=== PATIENT | female | born 1935 | race Caucasian/White ===

== ENCOUNTER 2017-12-17 19:30 | Inpatient (IN) ==
[2017-12-17 20:19] LABS: Basophils % 0.1 % (0.1-2.0); Eosinophils # 0.2 K/mm3 (0.0-0.4); Eosinophils % 1.6 % (0.1-12.0); Hematocrit 33.5 % (37.0-47.0); Lymphocytes % 10.8 K/mm3 (10-50); Mean Corpuscular HGB Conc 32.7 g/dL (31.8-35.4); Mean Corpuscular Hemoglobin 29.4 pg (27.0-31.2); Mean Corpuscular Volume 89.8 fl (81-99); Monocytes # 0.6 K/mm3 (0.1-1.0); Monocytes % 5.9 % (1.7-9.3); Neutrophils # 7.6 K/mm3 (1.8-7.8); Neutrophils % 81.7 % (37.0-80.0); Platelet Count 247 K/mm3 (142-424); Red Blood Count 3.73 M/mm3 (4.20-5.40); Red Cell Distribution Width 13.1 % (11.5-17.5); White Blood Count 9.3 K/mm3 (4.8-10.8)
[2017-12-17 20:26] LABS: Anion Gap 11.1 mEq/L (5-15); Potassium 4.1 mmoL/L (3.5-5.1)
--- NOTE | 2017-12-17 21:54 | Emergency Department Note ---
ED Disposition Clinical Impression: Renal insufficiency Hip fx Qualifiers: Encounter type: initial encounter Fracture type: closed Laterality: left Qualified Code(s): S72.002A - Fracture of unspecified part of neck of left femur , initial encounter for closed fracture Disposition: Admitted As Inpatient Condition on Discharge: Good Referrals: Myriam Loco MD [Primary Care Provider] - - Critical Care Critical Care Time: No Attestation: On 12/17/17, the high probability of a clinically significant, sudden or life threatening deterioration of the following system(s) required my full and direct attention, intervention and personal management. The time I documented below is in addition to time spent performing reported procedures but includes the following listed in this critical care notation. Medical Decision Making - Medical Records Medical records reviewed: Yes: I reviewed the patient's medical records. - Ronnie Inquiry Pt receiving controlled substance: No Vital Signs: 12/17/17 19:33 Temperature 98.7 F Temperature Source Oral Pulse Rate [Right Radial] 84 Respiratory Rate 14 Blood Pressure [Right Arm] 144/77 Blood Pressure Mean [Right Arm] 99 Blood Pressure Source [Right Arm] Automatic Cuff Blood Pressure Position [Right Arm] Supine 02 Sat by Pulse Oximetry 97 Oxygen Delivery Method Room Air - Lab Data Lab results reviewed: Yes: I reviewed the patient's lab results. Lab Results 12/17/17 20:10: WBC 9.3, RBC 3.73 L, Hgb 11.0 L, Hct 33.5 L, MCV 89.8, MCH 29.4 , MCHC 32.7, RDW 13.1, Plt Count 247, MPV 7.0 L, Neut % (Auto) 81.7 H, Lymph % ( Auto) 10.8, [place] % (Auto) 5.9, Eos % (Auto) 1.6, Baso % (Auto) 0.1, Neut # (Auto ) 7.6, Lymph # (Auto) 1.0, [place] # (Auto) 0.6, Eos # (Auto) 0.2, Baso # (Auto) 0.0 12/17/17 20:10: Sodium 132 L, Potassium 4.1, Chloride 97 L, Carbon Dioxide 28, Anion Gap 11.1, BUN 28 H, Creatinine 1.19 H, Estimated Creat Clear 45, Estimated GFR 43 L, Est GFR ( Amer) 52 L, Glucose 156 H Result diagrams: 12/17/17 20:10 12/17/17 20:10 Orders (Tests/Meds): ED MEDICATIONS Discontinued Medications Generic Name Dose Route Start Last Admin Trade Name Marcia PRN Reason Stop Dose Admin Morphine Sulfate 2 mg 12/17/17 20:10 12/17/17 19:55 Morphine 2mg/2ml Syringe IV 12/17/17 20:11 2 mg ONCE ONE Administration Ondansetron HCl 4 mg 12/17/17 20:10 12/17/17 19:55 Zofran 4mg/2ml Vial IV 12/17/17 20:11 4 mg ONCE ONE Administration ORDERS Category Date Time Status XR chest AP Routine Exams 12/17/17 20:23 Taken XR hip LT 2-3V w/pelvis Stat Exams 12/17/17 19:50 Taken - Radiology Data #1 Image(s): Chest, Hip Image Reviewed: Yes I reviewed the patient's radiology image Preliminary Findings: Normal/NAD, Abnormal (lt hip fx ) - Physician Consults Physician Consulted: amelie Reason -: Admission Additional Consult: thomas Reason -: Pt condition Fall HPI - General Chief Complaint: Fall Stated Complaint: fall Time Seen by Provider: 12/17/17 21:48 Mode of Arrival: EMS Source of Information: Patient, Relative, Medical Record Limitations: No Limitations Description of Symptoms (Recalled from ER Triage Doc. by RN): left hip pain with external rotation and shortening after fall from standing - History of Present Illness HPI Narrative: fall at f tonight transferring from chair complaint: fall Onset (ago): hour(s) Fall from: chair Fall witnessed: no Place fall occurred: snf/SNF Loss of consciousness: none Prolonged down time: no Symptoms prior to fall: none Context: tripped/slipped Location of injury - extremities: Left: thigh Severity: moderate - Related Data Home Medications Medication Instructions Recorded Confirmed Cyclobenzaprine HCl 5 mg PO BID PRN 12/12/17 12/17/17 [Cyclobenzaprine 5mg Tab] Donepezil HCl [Aricept 5mg] 5 mg PO HS 12/17/17 12/17/17 Ibuprofen [Ibuprofen 600mg Tab] 600 mg PO TID 12/17/17 12/17/17 Lisinopril [Lisinopril 20mg Tab] 20 mg PO BID 12/17/17 12/17/17 Previous Rx's Medication Instructions Recorded Tramadol HCl [Ultram 50mg 50 mg PO BID #4 tab 12/12/17 tablet] Allergies Allergy/AdvReac Type Severity Reaction Status Date / Time naproxen Allergy Unknown UNKNOWN Verified 12/17/17 20:11 [facility] History I have reviewed the patient's past medical history: Yes Medical History: Denies:: Cancer, Diabetes Mellitus Type 1, Diabetes Mellitus Type 2, MRSA Laterality Cases: Bilateral: Arthroscopy Knee Amputation: No - Social History Alcohol Intake: never - Psychiatric History Expresses thoughts of harming self/others: None Suicide Plan Description: No Plan ROS Obtained: Yes All systems reviewed & no additional complaints - Constitutional Constitutional: Denies fever(s) - Eyes Eyes: Denies change in vision - ENT Ears, Nose, Mouth, and Throat: Denies sore throat - Cardiovascular Cardiovascular: Denies chest pain at rest - Respiratory Respiratory: No cough - Gastrointestinal Gastrointestingal: Denies: abdominal pain - Genitourinary Female Genitourinary: Denies flank pain - Musculoskeletal Musculoskeletal: Reports joint pain, Reports back pain - Integumentary/Breasts Skin/Breast: Denies rash - Neurologic Neurologic: Denies seizure-like activity Physical Exam - General General appearance: in no apparent distress - Head Head exam: normocephalic - Eye Eye exam: Present: PERRL, EOMI - ENT ENT exam: Present: mucous membranes dry - Neck Neck exam: Present: trachea midline - Respiratory Respiratory exam: Present: normal lung sounds bilaterally. Absent: respiratory distress - Cardiovascular Cardiovascular exam: Present: regular rate, systolic murmur, +S4 - Abdominal Exam Abdominal exam: Present: soft - Expanded Lower Extremity Exam Left Hip/Pelvis exam: Present: tenderness, pelvis stable, external rotation, shortening of leg, hip pain on leg movement - Neurological Exam Neurological exam: Present: alert, CN II-XII intact - Psychiatric Psychiatric exam: Present: normal affect - Skin Skin exam: Present: rash
[2017-12-17 22:16] LABS: Activated Partial Thrombo Time 26.3 seconds (23.6-34.0); INR 0.99 (0.9-1.1); Prothrombin Time 10.7 seconds (9.4-11.8)
[2017-12-18 03:27] LABS: Microscopic, Urine URINE MICROSCOPIC (MICROSCOPIC)
[2017-12-18 03:37] LABS: Appearance,Urine CLEAR (Clear); Bilirubin,Urine Negative (Negative); Blood, Urine TRACE-L (Negative); Color,Urine YELLOW (Yellow); Glucose,Urine (UA) Negative (Negative); Ketones,Urine Negative (Negative); Leukocyte Esterase,Urine Negative (Negative); PH,Urine 5.5 (5.0-8.5); Protein,Urine Negative (Negative); Specific Gravity, Urine <= 1.005 (1.005-1.030); Urobilinogen,Urine 0.2 EU/dl (0.2)
[2017-12-18 06:51] LABS: Basophils % 0.1 % (0.1-2.0); Eosinophils # 0.2 K/mm3 (0.0-0.4); Eosinophils % 2.1 % (0.1-12.0); Hematocrit 33.2 % (37.0-47.0); Hemoglobin 10.8 g/dL (12.2-16.2); Lymphocytes % 13.8 K/mm3 (10-50); Mean Corpuscular HGB Conc 32.5 g/dL (31.8-35.4); Mean Corpuscular Hemoglobin 29.4 pg (27.0-31.2); Mean Corpuscular Volume 90.3 fl (81-99); Mean Platelet Volume 6.8 fl (7.4-10.4); Monocytes # 0.6 K/mm3 (0.1-1.0); Monocytes % 8.3 % (1.7-9.3); Neutrophils # 5.6 K/mm3 (1.8-7.8); Neutrophils % 75.8 % (37.0-80.0); Platelet Count 214 K/mm3 (142-424); Red Blood Count 3.68 M/mm3 (4.20-5.40); Red Cell Distribution Width 13.3 % (11.5-17.5); White Blood Count 7.4 K/mm3 (4.8-10.8)
[2017-12-18 06:57] LABS: Anion Gap 10.1 mEq/L (5-15); Potassium 4.1 mmoL/L (3.5-5.1)
--- NOTE | 2017-12-18 09:03 | History & Physical Report ---
*Admission Date: 12/17/17 *Chief complaint: Hip pain *History of present illness: This 82-year-old white female has been having pain in the left hip for well over a week. There is no specific injury reported prior to her hospitalization at [facility] last Wednesday. She had full evaluation of the hip including an MRI. At that time there was no evidence of a fracture. She was transferred to [facility] [place] in [place] on 12/17/2017. She had been there only a matter of hours when she fell with an apparent injury to the left hip. She presented to the emergency room and was found to have an intertrochanteric fracture of the left hip. She is admitted for treatment. She continues to have pain in the left hip. She has evidence of osteoporosis. She has had some progressive dementia as well. [facility] History Medical History: Reports:: Arrhythmia, Hypertension Denies:: Cancer, Diabetes Mellitus Type 1, Diabetes Mellitus Type 2, MRSA Laterality Cases: Bilateral: Arthroscopy Knee Other Surgeries: Yes: Cancer Surgery Amputation: No - *Social History Educational Level: Completed High School Alcohol Intake: never Occupational Status: disabled Housing: [facility] - Psychiatric History Expresses thoughts of harming self/others: None Suicide Plan Description: No Plan *Family Hx:: Cancer, Hypertension Review of Systems - Review of Systems Review of systems:: unable to obtain Some information from her son is obtained. Sounds like her clinical status has been stable apart from the hip pain. She has been eating, bowels have been normal, she has been moving about obviously up until the time of injury. In fact her son thinks maybe she has been doing too much lately. She has some decrease in her hearing which is ongoing. The dementia is mentioned and has been progressive. She has known osteopenia and arthritis. 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 Lately this has been well controlled. - *Cardiovascular Denies chest pain, Denies chest pain with activity - *Respiratory Denies chest congestion - *Gastrointestinal Denies abdominal pain, Denies change in bowel habits - *Musculoskeletal Comments: As described above - *Neurologic Reports abnormal hearing, Denies seizure-like activity Comments: She has progressive dementia. She struggles with words. Meds Home Medications Medication Instructions Recorded Confirmed Type Cyclobenzaprine HCl 5 mg PO BID PRN 12/12/17 12/18/17 History [Cyclobenzaprine 5mg Tab] Donepezil HCl [Aricept 5mg] 5 mg PO HS 12/17/17 12/17/17 History Ibuprofen [Ibuprofen 600mg Tab] 600 mg PO TID 12/17/17 12/18/17 History Lisinopril [Lisinopril 20mg Tab] 20 mg PO BID 12/17/17 12/18/17 History Acetaminophen [Tylenol] 650 mg PO Q4HP PRN 12/18/17 12/18/17 History Tramadol HCl [Ultram] 50 mg PO Q6 PRN 12/18/17 12/18/17 History Allergies Allergy/AdvReac Type Severity Reaction Status Date / Time naproxen Allergy Unknown UNKNOWN Verified 12/17/17 20:11 Exam Vital signs and Labs for Last 24 Hours: Temp Pulse Resp BP Pulse Ox 97.8 F 69 18 145/60 97 12/18/17 08:00 12/18/17 08:00 12/18/17 08:00 12/18/17 08:00 12/18/17 08:00 Laboratory Results - last 24 hr 12/18/17 03:17: Urine Color Yellow, Urine Appearance Clear, Urine pH 5.5, Ur Specific [place] <= 1.005, Urine Protein Negative, Urine Glucose (UA) Negative, Urine Ketones Negative, Urine Blood Trace-l, Urine Nitrate Negative, Urine Bilirubin Negative, Urine Urobilinogen 0.2, Ur Leukocyte Esterase Negative, Urine RBC 3-5, Urine WBC 3-5, Ur Squamous Epith Cells 3-5 12/18/17 06:09: WBC 7.4, RBC 3.68 L, Hgb 10.8 L, Hct 33.2 L, MCV 90.3, MCH 29.4 , MCHC 32.5, RDW 13.3, Plt Count 214, MPV 6.8 L, Neut % (Auto) 75.8, Lymph % ( Auto) 13.8, [place] % (Auto) 8.3, Eos % (Auto) 2.1, Baso % (Auto) 0.1, Neut # (Auto ) 5.6, Lymph # (Auto) 1.0, [place] # (Auto) 0.6, Eos # (Auto) 0.2, Baso # (Auto) 0.0 12/18/17 06:09: Sodium 139, Potassium 4.1, Chloride 102, Carbon Dioxide 31, Anion Gap 10.1, BUN 24 H, Creatinine 1.00, Estimated Creat Clear 38, Estimated GFR 53 L, Est GFR ( Amer) 64 D, Glucose 107 H D I & O for Last 24 hours: Intake & Output 12/15/17 12/16/17 12/17/17 12/18/17 11:59 11:59 11:59 11:59 Output Total 600 / 600 Balance -600 / -600 Weight 127 lb 3 oz - Constitutional no acute distress Comments: Resting comfortably in bed. She is not in traction. - *Routine HEENT Exam Eye: Present: EOMI, PERRL. Absent: conjunctival icterus, scleral injection ENT: Present: mucous membranes dry - *Routine Neck Exam Present: supple - Routine Chest/Breast/Axilla Exam Chest wall: Absent: tenderness Axillae: Absent: lymphadenopathy, tenderness - *Routine Respiratory Exam Present: CTA bilaterally. Absent: rales, wheezes - *Routine Cardiovascular Exam Present: RRR - *Routine Abdominal Exam Present: soft. Absent: tenderness, mass - *Routine Extremities Exam Absent: cyanosis, edema Comments: There is external rotation of the left leg. She has some pain with movement. - *Routine Skin Exam Present: intact - *Routine Neurological Exam Present: alert H&P: Result - Labs Labs: Short CBC 12/18/17 Range/Units 06:09 WBC 7.4 (4.8-10.8) K/mm3 Hgb 10.8 L (12.2-16.2) g/dL Hct 33.2 L (37.0-47.0) % Plt Count 214 (142-424) K/mm3 BMP 12/18/17 06:09 Sodium 139 Potassium 4.1 Chloride 102 Carbon Dioxide 31 BUN 24 H Creatinine 1.00 Glucose 107 H D Urine 12/18/17 Range/Units 03:17 Urine Color Yellow (Yellow) Urine Appearance Clear (Clear) Urine pH 5.5 (5.0-8.5) Ur Specific [place] <= 1.005 (1.005-1.030) Urine Protein Negative (Negative) Urine Glucose (UA) Negative (Negative) Assessment and Plan (1) Intertrochanteric fracture of left hip Current visit: Yes Status: Acute Category: Medical Code(s): S72.142A - Displaced intertrochanteric fracture of left femur, initial encounter for closed fracture (2) DJD (degenerative joint disease) Current visit: No Status: Acute Category: Medical Code(s): M19.90 - Unspecified osteoarthritis, unspecified site (3) Lumbar canal stenosis Current visit: No Status: Acute Category: Medical Code(s): M48.061 - Spinal stenosis, lumbar region without neurogenic claudication (4) Renal insufficiency Current visit: Yes Status: Acute Category: Medical Code(s): N28.9 - Disorder of kidney and ureter, unspecified - Assessment and plan all Dx Assessment and Plan for all problems:: Surgery is planned.
--- NOTE | 2017-12-18 10:41 | Consult Report ---
*Admission Date: 12/17/17 *Chief complaint: Left hip pain *History of present illness: Patient is a pleasant 82-year-old female seen on the floor for orthopedic consultation along with her son. She has been having pain in the left hip for well over a week. There is no specific injury reported prior to her hospitalization at [facility] last Wednesday. She had full evaluation of the hip including an MRI. At that time there was no evidence of a fracture. She was transferred to [facility] [place] in [place] on 12/17/2017. She had been there only a matter of hours when she fell sustaining an injury to the left hip. She presented to the emergency room and was found to have an intertrochanteric fracture of the left hip. She is admitted for management of the same. She continues to have pain in the left hip. She has evidence of osteoporosis. She has had some progressive dementia as well. She was unable to get up and walk after the fall. Patient denies any dizziness, headache, chest or neck pain. She denies loss of consciousness, chest pain or shortness of breath. She previously had bilateral TKR-the left side was most recent, about [address] Ruby. I reviewed past medical history, home medication, immunization, social history, family history, lab results and ALLERGIES. Review of Systems - Review of Systems Review of systems:: pertinent systems reviewed and negative unless documented below - *Neurologic Reports abnormal hearing, Denies seizure-like activity [facility] History I have reviewed the patient's past medical history: Yes Medical History: Reports:: Arrhythmia, Hypertension Denies:: Cancer, Diabetes Mellitus Type 1, Diabetes Mellitus Type 2, MRSA Laterality Cases: Bilateral: Arthroscopy Knee Other Surgeries: Yes: Cancer Surgery Amputation: No - *Social History Educational Level: Completed High School Alcohol Intake: never Occupational Status: disabled Housing: jail - Psychiatric History Expresses thoughts of harming self/others: None Suicide Plan Description: No Plan *Family Hx:: Cancer, Hypertension Meds Home Medications Medication Instructions Recorded Confirmed Type Cyclobenzaprine HCl 5 mg PO BID PRN 12/12/17 12/18/17 History [Cyclobenzaprine 5mg Tab] Donepezil HCl [Aricept 5mg] 5 mg PO HS 12/17/17 12/17/17 History Ibuprofen [Ibuprofen 600mg Tab] 600 mg PO TID 12/17/17 12/18/17 History Lisinopril [Lisinopril 20mg Tab] 20 mg PO BID 12/17/17 12/18/17 History Acetaminophen [Tylenol] 650 mg PO Q4HP PRN 12/18/17 12/18/17 History Tramadol HCl [Ultram] 50 mg PO Q6 PRN 12/18/17 12/18/17 History Allergies Allergy/AdvReac Type Severity Reaction Status Date / Time naproxen Allergy Unknown UNKNOWN Verified 12/17/17 20:11 Exam Vital signs and Labs for Last 24 Hours: Temp Pulse Resp BP Pulse Ox 97.8 F 69 18 145/60 97 12/18/17 08:00 12/18/17 08:00 12/18/17 08:00 12/18/17 08:00 12/18/17 08:00 Laboratory Results - last 24 hr 12/18/17 03:17: Urine Color Yellow, Urine Appearance Clear, Urine pH 5.5, Ur Specific [place] <= 1.005, Urine Protein Negative, Urine Glucose (UA) Negative, Urine Ketones Negative, Urine Blood Trace-l, Urine Nitrate Negative, Urine Bilirubin Negative, Urine Urobilinogen 0.2, Ur Leukocyte Esterase Negative, Urine RBC 3-5, Urine WBC 3-5, Ur Squamous Epith Cells 3-5 12/18/17 06:09: WBC 7.4, RBC 3.68 L, Hgb 10.8 L, Hct 33.2 L, MCV 90.3, MCH 29.4 , MCHC 32.5, RDW 13.3, Plt Count 214, MPV 6.8 L, Neut % (Auto) 75.8, Lymph % ( Auto) 13.8, [place] % (Auto) 8.3, Eos % (Auto) 2.1, Baso % (Auto) 0.1, Neut # (Auto ) 5.6, Lymph # (Auto) 1.0, [place] # (Auto) 0.6, Eos # (Auto) 0.2, Baso # (Auto) 0.0 12/18/17 06:09: Sodium 139, Potassium 4.1, Chloride 102, Carbon Dioxide 31, Anion Gap 10.1, BUN 24 H, Creatinine 1.00, Estimated Creat Clear 38, Estimated GFR 53 L, Est GFR ( Amer) 64 D, Glucose 107 H D I & O for Last 24 hours: Intake & Output 12/15/17 12/16/17 12/17/17 12/18/17 11:59 11:59 11:59 11:59 Output Total 600 / 600 Balance -600 / -600 Weight 127 lb 3 oz - Constitutional no acute distress - *Routine HEENT Exam Head: Present: normocephalic Eye: Present: EOMI, PERRL ENT: Present: mucous membranes moist - *Routine Neck Exam Present: supple, full ROM, trachea midline - *Routine Respiratory Exam Present: CTA bilaterally - *Routine Cardiovascular Exam Present: RRR, Normal S1, Normal S2 - *Routine Abdominal Exam Present: soft, normoactive bowel sounds - *Routine Extremities Exam Comments: On examination of her lower extremities, there is shortening of the LEFT leg and the foot is externally rotated. On examination of the LEFT hip the skin is normal. No rashes or lesions noted. She is tender over the LEFT hip. Any attempted movements of the LEFT hip are painful. Thigh and calf are soft and nontender. Dorsalis pedis and posterior tibial pulses are palpable 2+ bilaterally. Sensation is grossly intact. She has good range of foot, ankle and toe movements. She has well-healed midline surgical scars over both knee joints from previous surgery. Imaging: X-rays of her pelvis AP view, RIGHT hip AP and lateral views are showing a comminuted, displaced, unstable intertrochanteric fracture of the LEFT proximal femur. Hip joint is fairly well-preserved. - *Routine Skin Exam Present: intact, warm, normal turgor - *Routine Neurological Exam Present: alert, oriented X3, CN II-XII intact, normal tone - Routine Psychiatric Exam Present: normal affect, cooperative Results - Labs Result Diagrams: 12/18/17 06:09 12/18/17 06:09 Labs: Abnormal lab results 12/18/17 12/18/17 Range/Units 06:09 06:09 RBC 3.68 L (4.20-5.40) M/mm3 Hgb 10.8 L (12.2-16.2) g/dL Hct 33.2 L (37.0-47.0) % MPV 6.8 L (7.4-10.4) fl BUN 24 H (7-18) mg/dL Estimated GFR 53 L (>60) ml/min Glucose 107 H D (74-106) mg/dL H & H 12/18/17 Range/Units 06:09 Hgb 10.8 L (12.2-16.2) g/dL Hct 33.2 L (37.0-47.0) % All other labs normal. Assessment and Plan (1) Intertrochanteric fracture of left hip Start date: 12/17/17 Current visit: Yes Status: Acute Category: Medical Code(s): S72.142A - Displaced intertrochanteric fracture of left femur, initial encounter for closed fracture I reviewed the clinical and imaging findings with the patient and her son who was with her in the room. I have discussed the diagnosis and management options in detail including both nonsurgical and surgical. I have recommended surgical remediation in the form of a femoral nailing (cephalo-medullary nailing). I explained the procedure, risks and benefits, alternatives and the expected postoperative course and outcome. I explained to the patient and her family the type of the fracture and the proposed surgical procedure using copies of the x- rays, pictures from the Internet and drawings. The complications discussed include but are not limited to infection, bleeding, injury to nerves and blood vessels, DVT, PE, screw cut-out/implant failure, loss of fixation, nonunion, malunion/malrotation, osteonecrosis of the femoral head, femoral shaft fracture , painful hardware, heterotopic ossification, stiffness, weakness, incomplete relief of pain, incomplete return of function or motion and the likely need for further surgery in future, and anesthetic/medical complications including heart attack, stroke, transfusion reaction or . We discussed how any of these events can be devastating. I've explained that the patient is at a significant surgical risk due to her age, cardiac and other medical issues, and fragility of the bone. Family and patient seemed to understand and accept these risks. We have discussed nonsurgical alternatives as well. The nonoperative management would essentially consist of prolonged bed rest and traction (skeletal/skin) in bed and pain medication and has exceptionally poor outcome. This could result in nonunion and malunion of the fracture and almost certainly, the patient has a very high risk of decubitus ulcers, UTI, respiratory tract infections, DVT/PE and other complications from being bedridden. I have explained to them that the standard of care for this sort of injuries is surgical throughout the country unless the patient is very ill for surgical management. We also discussed the postoperative course including the rehab and physical therapy required. She was fairly active and living herself prior to the injury but may need short-term placement in a [facility] facility for rehab after surgery. All their questions were answered and they verbalized a good understanding. She was cleared for surgery by Dr. Loco this this morning. Well also obtain a preoperative anesthetic evaluation. The limb was marked appropriately and initialed by me. I have recommended- Type and screen Continue nothing by mouth Continue IV fluids Analgesia as needed Consent patient for a cephalo-medullary nailing LEFT hip. Order 2 g of IV Ancef for preoperative prophylaxis to start half an hour before surgery I am planning to take her for surgery at the earliest opportunity today. Continue medical management as per Dr. Loco. Thank you for the opportunity to take part in the care of this very pleasant patient. (2) DJD (degenerative joint disease) Current visit: No Status: Acute Category: Medical Code(s): M19.90 - Unspecified osteoarthritis, unspecified site (3) Lumbar canal stenosis Current visit: No Status: Acute Category: Medical Code(s): M48.061 - Spinal stenosis, lumbar region without neurogenic claudication (4) Renal insufficiency Current visit: Yes Status: Acute Category: Medical Code(s): N28.9 - Disorder of kidney and ureter, unspecified
--- NOTE | 2017-12-18 13:31 | Progress Note ---
[facility] Anesthesia Checklist - Patient Identification Patient Identification: Arm Band, Family, Verbal (Name & ) - Structural Data Admitted From: Inpatient Planned Operative Procedure/s: left hip orif Consent for Planned Operative Procedure(s) Verified: Yes Verified Documents: Surgical Consent, History and Physical - NPO Status Verified Time NPO: 00:00 - Chart Verification Results Verified: CBC, BMP - Additional verifications Patient : No Anesthesia Reactions: No Hx Blood Transfusions: No Blood Transfusion Reaction: No Cephalosporin Allergy: No Previous Colonoscopy: No - Cardiovascular Assessment Heart Sounds: S1 & S2 Pulse Strength: Baseline Pulse Rhythm: Regular Peripheral Edema: No - Airway Assessment C-Spine Mobility Assessed: Yes TMJ Mobility Assessed: Yes Dentition: Poor Dentition - Neurological Assessment Level of Consciousness: Awake, Alert, Appropriate Hx Seizures: No Numbness or tingling in extremities: No - Anesthesia Plan Anesthesia Risk discussed: Yes Anesthesia Plan: Verified ASA Class: III Anesthesia Type: Spinal [facility] Anesthesia HX Medical History: Reports:: Arrhythmia, Hypertension Denies:: Cancer, Diabetes Mellitus Type 1, Diabetes Mellitus Type 2, MRSA Laterality Cases: Bilateral: Arthroscopy Knee Other Surgeries: Yes: Cancer Surgery Amputation: No *Family Hx:: Cancer, Hypertension
--- NOTE | 2017-12-18 15:00 | Pharmacy Consult Notes ---
[facility] Pharmacy VTE Monitoring - Patient Demographics Admission date: 12/17/17 Report Date: 12/18/17 Time: 15:00 Allergies/Adverse Reactions: Patient Allergies naproxen Allergy (Unknown, Verified 12/17/17 20:11) UNKNOWN Height: 1.57 m Weight: 57.691 kg Patient Problems: Current Active Problems Hip fx (Acute) Renal insufficiency (Acute) Intertrochanteric fracture of left hip (Acute) - VTE Risk Labs: VTE Related Lab Results Hgb 10.8 g/dL (12.2-16.2) L 12/18/17 06:09 Hct 33.2 % (37.0-47.0) L 12/18/17 06:09 Plt Count 214 K/mm3 (142-424) 12/18/17 06:09 PT 10.7 seconds (9.4-11.8) 12/17/17 20:10 INR 0.99 (0.9-1.1) 12/17/17 20:10 APTT 26.3 seconds (23.6-34.0) 12/17/17 20:10 BUN 24 mg/dL (7-18) H 12/18/17 06:09 Creatinine 1.00 mg/dL (0.55-1.02) 12/18/17 06:09 Estimated Creat Clear 38 mL/min (0-300) 12/18/17 06:09 Was VTE Risk Assessment Performed: Yes VTE Risk Level: Low Risk - Prophylaxis VTE Prophylaxis Ordered?: Yes Types of VTE Prophylaxis: TEDS Knee High Location of Applied Device: Bilateral Lower Extremeties
--- NOTE | 2017-12-18 17:21 | Progress Note ---
[facility] Anesthesia Record Part I Intake, IV Amount: 1,450 Estimated blood loss (mL): 150 Urine output (mL): 350 Blood Products used (#): none Blood Pressure: 146/79 SaO2: 98 Pulse Rate: 83 Respiratory Rate: 18 Temperature: 97.5 F Patient is:: Drowsy, Nasal O2, Stable Stable to PACU at:: 17:15
--- NOTE | 2017-12-18 17:22 | Progress Note ---
[facility] Anesthesia Record Part II Discharge Time: 17:45 Destination: Medical Surgical Department PACU nurse assessment reviewed?: Yes Patient Condition:: Good Anesthesia Complications:: None
--- NOTE | 2017-12-18 17:51 | Operative Note ---
Date of procedure: 12/18/17 Pre-op Diagnosis:: Closed, comminuted, displaced and unstable intertrochanteric fracture LEFT femur Post-op Diagnosis:: Closed, comminuted, displaced and unstable intertrochanteric fracture LEFT femur Procedure performed:: Cephalo-medullary nailing LEFT femur with Hunter Gamma 3 nailing system using the Hunter Advaliant computer navigation Surgeon:: Manuel Vasquez MD District Supervisor(s):: Amanda Butt PANTOGRAPH ENGRAVER:: José Manuel Bonds Anesthesia: spinal Estimated blood loss (mL): 150 Clinical Note:: Patient is a 82-year-old female who fell and sustained an injury to her LEFT hip on 12/17/2017. Following evaluation in the emergency room where x-rays showed a displaced and comminuted intertrochanteric fracture of her LEFT proximal femur, she was admitted for further management. After evaluating her, I discussed the diagnosis and management options in detail including nonsurgical and surgical, with the patient and her family. She is a resident of [facility] [place]. After a detailed discussion with the patient and her family a decision was made to fix the fracture internally with a cephalo- medullary nail. I discussed the procedure, risks and benefits, postoperative recovery and rehabilitation and the expected outcomes. The complications discussed include but are not limited to DVT, PE, infection, bleeding, injury to nerves and blood vessels, screw cut-out/implant failure, loss of fixation, nonunion, malunion/malrotation, osteonecrosis of the femoral head, femoral shaft fracture, painful hardware, heterotopic ossification, stiffness, weakness , incomplete relief of pain, incomplete return of function or motion and the likely need for further surgery in future, and anesthetic/medical complications including heart attack, stroke, transfusion reaction or . The patient and her family wished to proceed with the surgical remediation. Consent form was reviewed and signed by me. The limb was appropriately marked and initialed by me. Following appropriate preoperative workup and medical clearance, she was brought to the operating room for surgery. The surgery is indicated to reduce and stabilize the fracture, relieve pain and improve function. Operative findings:: Comminuted, displaced and unstable intertrochanteric fracture LEFT proximal femur as noted on the preoperative x-rays. The fracture was well reduced with closed manipulation prior to fixation. Bone quality was good. Operative note:: Following appropriate preoperative workup and medical clearance, patient was brought to the operating room and a spinal anesthesia was administered. Patient was then positioned supine on the fracture table and all the bony prominences were appropriately padded. The LEFT foot was secured in the footplate and the footplate was attached to the fracture table. The RIGHT leg was placed out of the way in a leg renee. Under fluoroscopic guidance the fracture was reduced by traction and satisfactory reduction was obtained. The reduction was confirmed on both AP and lateral views. The LEFT hip and thigh were then prepped and draped in the usual sterile fashion. Administration of prophylactic antibiotics was confirmed with the anesthetic team (2 g of IV Ancef was administered). A preprocedure timeout was performed as per the hospital protocol. After marking the level of the greater trochanter on the skin under fluoroscopy, a skin incision was made proximal to the greater trochanter in line with the femoral shaft. The dissection was then carried through the subcutaneous tissue. The tensor fascia muscle was split in line with the fibers. This provided access to the tip of the greater trochanter. Under fluoroscopic guidance a guidewire was placed at the tip of the greater trochanter, the position was confirmed on both fluoroscopic views and advanced into the proximal femur. The proximal segment was then reamed over the guidewire and the guidewire was exchanged for a ball-tipped guidewire which was advanced into the distal femur. The position of the guidewire was confirmed in both AP and lateral views. Then sequential reaming was performed over the guidewire up to 12.5 mm reamer. The required nail length was measured. A 125 degree angle, 11 mm diameter, long (380 mm) LEFT hunter Gamma 3 nail was selected. The selected nail was attached to the proximal jig and the nail was then inserted into the femur under fluoroscopic guidance. After seating the nail to the appropriate level, I proceeded to introduce the lag screw. We used the Cartesian computer navigation system for placement of the lag screw. The lag screw sheath assembly was placed through the appropriate hole in the jig and locked in place. Then a 1 inch skin incision was made over the lateral thigh at this level. The incision was deepened through soft tissue and the fascia [place] and the muscle was split. The trocar was removed and a guide pin was placed into the femoral head under fluoroscopic control. After confirming satisfactory placement of the guidepin in both AP and lateral fluoroscopic views the length was measured. A 90 mm lag screw was then selected. Drilling was performed over the guidewire for the lag screw. The lag screw was then introduced over the guidewire and advanced to an appropriate level. The traction was reduced and fracture site compressed. The guide pin and sheath were then removed. The lag screw was secured in place with the set screw. After final seating of the lag screw the tip apex distance was 12 mm. I then proceeded to perform the distal locking through the dynamic hole- we used the [employer] Gamma nail distal locking jig for this. After appropriately lining the drill sleeve and nail under fluoroscopic guidance, the drill sleeve was placed through the dynamic hole and a 1 cm skin incision was made. Through the drill sleeve the 4.3 mm drill was introduced and the drill hole made for the distal locking screw. The screw length was measured and a 5 mm x 45 mm cortical bone screw was introduced through the dynamic locking hole. The distal and proximal jigs were then removed and fluoroscopic screening was performed in both the AP and lateral views. The reduction and fixation were noted to be satisfactory and stable. Fluoroscopic images were obtained and stored digitally. The wounds were washed out with normal saline and hemostasis was obtained with the diathermy cautery. The wounds were then closed in layers with the 0 Vicryl, 2-0 Vicryl and 4-0 Monocryl subcuticular sutures, Dermabond and Steri-Strips. Sterile dressings were applied. The foot was taken out of the foot renee and the opposite leg out of the leg renee and placed on the table extension. The limb lengths were noted to be equal and there was no rotational malalignment. Dorsalis pedis and posterior tibial pulses were 1+ on both sides. At the end of the procedure, swab, needle and instrument counts were correct according to the scrub team. Patient was then transferred onto the bed. Patient was then transported to the PACU in a stable condition. Patient tolerated the procedure well and there were no immediate complications. Postoperatively patient will receive 2 further doses of prophylactic antibiotics , DVT prophylaxis as per protocol and IV and oral analgesia as needed. Medical management as per Dr. Loco's team. Patient can be mobilized on the first postoperative day with a walker, weight bearing on the LEFT side as tolerated. Implants used: Hertford Gamma 3 long nailing system- 130 degree angle, 11 mm diameter, long ( 380 mm) LEFT hunter Gamma 3 nail, 10.5 mm x 90 mm lag screw and 5 mm x 45 mm distal locking screw. (Industry technical service representative: Darius Mary from [facility]) Condition: stable Disposition: floor Specimens:: None Complications:: None
[2017-12-19 07:26] LABS: Eosinophils # 0.1 K/mm3 (0.0-0.4); Mean Corpuscular Volume 90.1 fl (81-99); Red Cell Distribution Width 13.4 % (11.5-17.5)
[2017-12-19 07:36] LABS: Basophils % 0.1 % (0.1-2.0); Eosinophils % 1.5 % (0.1-12.0); Hematocrit 28.6 % (37.0-47.0); Lymphocytes # 0.9 K/mm3 (0.7-4.5); Lymphocytes % 11.3 K/mm3 (10-50); Mean Corpuscular HGB Conc 33.4 g/dL (31.8-35.4); Mean Corpuscular Hemoglobin 30.1 pg (27.0-31.2); Mean Platelet Volume 7.1 fl (7.4-10.4); Monocytes # 0.6 K/mm3 (0.1-1.0); Monocytes % 8.2 % (1.7-9.3); Neutrophils # 6.1 K/mm3 (1.8-7.8); Neutrophils % 78.8 % (37.0-80.0); Platelet Count 209 K/mm3 (142-424); Red Blood Count 3.18 M/mm3 (4.20-5.40); White Blood Count 7.8 K/mm3 (4.8-10.8)
[2017-12-19 07:37] LABS: Albumin Level 2.2 gm/dL (3.4-5.0); Albumin/Globulin Ratio 0.6 (1.1-1.8); Anion Gap 11.1 mEq/L (5-15); Bilirubin,Total 0.4 mg/dL (0.2-1.0); Calcium 8.4 mg/dL (8.5-10.1); Globulin 3.7 gm/dl (1.3-3.2); Potassium 4.1 mmoL/L (3.5-5.1); Total Protein,Serum 5.9 gm/dL (6.4-8.2)
[2017-12-19 07:38] LABS: Hemoglobin 9.5 g/dL (12.2-16.2)
--- NOTE | 2017-12-19 10:38 | Progress Note ---
Internal Medicine - PN: Subj *Date: 12/19/17 *Time: 10:35 Interval history: She seems quite stable postoperatively this morning. Her color is good. She is drowsy but in no distress. Her blood pressure was elevated last night but we have resumed lisinopril. Exam Vital signs and Labs for Last 24 Hours: Temp Pulse Resp BP Pulse Ox 98.8 F 98 H 18 112/58 95 12/19/17 07:33 12/19/17 07:33 12/19/17 07:33 12/19/17 07:33 12/19/17 08:00 Laboratory Results - last 24 hr 12/19/17 06:05: WBC 7.8, RBC 3.18 L, Hgb 9.5 L D, Hct 28.6 L, MCV 90.1, MCH 30.1 , MCHC 33.4, RDW 13.4, Plt Count 209, MPV 7.1 L, Neut % (Auto) 78.8, Lymph % ( Auto) 11.3, [place] % (Auto) 8.2, Eos % (Auto) 1.5, Baso % (Auto) 0.1, Neut # (Auto ) 6.1, Lymph # (Auto) 0.9, [place] # (Auto) 0.6, Eos # (Auto) 0.1, Baso # (Auto) 0.0 12/19/17 06:05: Sodium 137, Potassium 4.1, Chloride 103, Carbon Dioxide 27, Anion Gap 11.1, BUN 20 H, Creatinine 1.06 H, Estimated Creat Clear 36, Estimated GFR 49 L, Est GFR ( Amer) 60, Glucose 108 H, Calcium 8.4 L, Total Bilirubin 0.4, AST 21, ALT 13, Alkaline Phosphatase 58, Total Protein 5.9 L, Albumin 2.2 L, Globulin 3.7 H, Albumin/Globulin Ratio 0.6 L Laboratory Tests 12/17/17 12/18/17 12/19/17 20:10 06:09 06:05 WBC 9.3 7.4 7.8 Hgb 11.0 L 10.8 L 9.5 L D Sodium Potassium BUN Creatinine 12/19/17 06:05 WBC Hgb Sodium 137 Potassium 4.1 BUN 20 H Creatinine 1.06 H Selected Entries 12/18/17 22:45 12/18/17 23:45 12/19/17 00:45 Blood Pressure [Right Arm] 167/66 100/54 103/55 12/19/17 04:00 12/19/17 07:33 Blood Pressure [Right Arm] 129/59 112/58 I & O for Last 24 hours: Intake & Output 12/16/17 12/17/17 12/18/17 12/19/17 11:59 11:59 11:59 11:59 Intake Total 2778 / 2778 Output Total 600 / 600 1725 / 1725 Balance -600 / -600 1053 / 1053 Weight 127 lb 3 oz 127 lb 3 oz - Constitutional no acute distress - *Routine HEENT Exam Eye: Present: PERRL ENT: Present: mucous membranes moist - *Routine Respiratory Exam Present: CTA bilaterally - *Routine Cardiovascular Exam Present: RRR - *Routine Extremities Exam Comments: Flowtron in place Assessment and Plan (1) Intertrochanteric fracture of left hip Start date: 12/17/17 Current visit: Yes Status: Acute Category: Medical Code(s): S72.142A - Displaced intertrochanteric fracture of left femur, initial encounter for closed fracture (2) DJD (degenerative joint disease) Current visit: No Status: Acute Category: Medical Code(s): M19.90 - Unspecified osteoarthritis, unspecified site (3) Lumbar canal stenosis Current visit: No Status: Acute Category: Medical Code(s): M48.061 - Spinal stenosis, lumbar region without neurogenic claudication (4) Renal insufficiency Current visit: Yes Status: Acute Category: Medical Code(s): N28.9 - Disorder of kidney and ureter, unspecified - Assessment and plan all Dx Assessment and Plan for all problems:: Continue present care
--- NOTE | 2017-12-19 15:26 | Progress Note ---
Subjective Date: 12/19/17 Time: 13:00 Principal diagnosis: Intertrochanteric fracture left femur Interval history: Patient is status post LEFT cephalo-medullary nailing post op day #1. Patient is lying on the bed. Says is doing well and reports no problems. Patient has minimal pain and says it's well-controlled with medication. No history of any nausea or vomiting. No history of any cough, chest pain, shortness of breath or palpitations. Patient says she is eating and drinking well. No history of any distal tingling or numbness. PN: Obj Ex Vital signs: Temp Pulse Resp BP Pulse Ox 97.9 F 86 18 107/53 96 12/19/17 11:58 12/19/17 11:58 12/19/17 11:58 12/19/17 11:58 12/19/17 11:58 Narrative: Laboratory Results - last 24 hr 12/19/17 06:05: WBC 7.8, RBC 3.18 L, Hgb 9.5 L D, Hct 28.6 L, MCV 90.1, MCH 30.1 , MCHC 33.4, RDW 13.4, Plt Count 209, MPV 7.1 L, Neut % (Auto) 78.8, Lymph % ( Auto) 11.3, [place] % (Auto) 8.2, Eos % (Auto) 1.5, Baso % (Auto) 0.1, Neut # (Auto ) 6.1, Lymph # (Auto) 0.9, [place] # (Auto) 0.6, Eos # (Auto) 0.1, Baso # (Auto) 0.0 12/19/17 06:05: Sodium 137, Potassium 4.1, Chloride 103, Carbon Dioxide 27, Anion Gap 11.1, BUN 20 H, Creatinine 1.06 H, Estimated Creat Clear 36, Estimated GFR 49 L, Est GFR ( Amer) 60, Glucose 108 H, Calcium 8.4 L, Total Bilirubin 0.4, AST 21, ALT 13, Alkaline Phosphatase 58, Total Protein 5.9 L, Albumin 2.2 L, Globulin 3.7 H, Albumin/Globulin Ratio 0.6 L Exam General appearance: alert, active, awake, no acute distress Cardiovascular: regular rate & rhythm, normal peripheral pulses, Respiratory: clear to auscultation, normal breath sounds ABD: normal exam; soft and non tender Genitourinary: Catheter in situ. 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 Thigh and calf are soft and nontender. On examination of the LEFT hip the dressings are clean, dry and intact. Distal pulses are 1+. Distal sensation is intact to light touch throughout. No motor deficits noted distally. - Urinary Catheter Management Gaspar Cath placed during this visit: no Progress Note: A&P (1) Intertrochanteric fracture of left hip Start date: 12/17/17 Status: Acute Assessment and plan: I reviewed the clinical and operative findings and procedure performed with the patient and family. Patient is doing well and reports no problems. Patient can be mobilized weightbearing as tolerated on the LEFT side with the walker. Continue DVT prophylaxis. Discontinue IV fluids as she is eating and drinking well.. Case management consult regarding discharge planning. Medical management as per Dr. Loco. Current Visit: Yes (2) DJD (degenerative joint disease) Status: Acute Current Visit: No (3) Lumbar canal stenosis Status: Acute Current Visit: No (4) Renal insufficiency Status: Acute Current Visit: Yes
--- NOTE | 2017-12-20 09:35 | Progress Note ---
Internal Medicine - PN: Subj *Date: 12/20/17 *Time: 09:32 Interval history: Quite stable post -op. Very alert this AM. Son in room. Exam Vital signs and Labs for Last 24 Hours: Temp Pulse Resp BP Pulse Ox 98.5 F 89 16 120/72 94 L 12/20/17 07:58 12/20/17 07:58 12/20/17 07:58 12/20/17 07:58 12/20/17 09:11 I & O for Last 24 hours: Intake & Output 12/17/17 12/18/17 12/19/17 12/20/17 11:59 11:59 11:59 11:59 Intake Total 2778 / 2778 1080 / 1080 Output Total 600 / 600 1725 / 1725 950 / 950 Balance -600 / -600 1053 / 1053 130 / 130 Weight 127 lb 3 oz 127 lb 3 oz - Constitutional no acute distress - *Routine HEENT Exam Eye: Present: PERRL - *Routine Respiratory Exam Comments: good air movement. Some fibrotic rales. - *Routine Cardiovascular Exam Present: RRR - *Routine Abdominal Exam Present: soft. Absent: tenderness - *Routine Extremities Exam Comments: moves feet, toes. Feet warm. Assessment and Plan (1) Intertrochanteric fracture of left hip Start date: 12/17/17 Current visit: Yes Status: Acute Category: Medical Code(s): S72.142A - Displaced intertrochanteric fracture of left femur, initial encounter for closed fracture (2) DJD (degenerative joint disease) Current visit: No Status: Acute Category: Medical Code(s): M19.90 - Unspecified osteoarthritis, unspecified site (3) Lumbar canal stenosis Current visit: No Status: Acute Category: Medical Code(s): M48.061 - Spinal stenosis, lumbar region without neurogenic claudication (4) Renal insufficiency Current visit: Yes Status: Acute Category: Medical Code(s): N28.9 - Disorder of kidney and ureter, unspecified - Assessment and plan all Dx Assessment and Plan for all problems:: Cont care. Probable discharge in AM to [place].
--- NOTE | 2017-12-20 15:06 | Progress Note ---
Subjective Date: 12/20/17 Time: 14:45 Principal diagnosis: Intertrochanteric fracture left femur Interval history: Patient is status post LEFT cephalo-medullary nailing post op day #2. Patient is lying on the bed and appears somewhat confused. She says he is feeling tired today. Says she has pain in her left hip and says it's well-controlled with medication. No history of any nausea or vomiting. No history of any cough, chest pain, shortness of breath or palpitations. No history of any distal tingling or numbness. PN: Obj Ex Vital signs: Temp Pulse Resp BP Pulse Ox 98.5 F 89 16 120/72 94 L 12/20/17 07:58 12/20/17 07:58 12/20/17 07:58 12/20/17 07:58 12/20/17 09:11 - Constitutional mild distress - Routine HEENT Exam Head: Present: normocephalic ENT: Present: mucous membranes moist - Routine Neck Exam Present: supple, trachea midline - Routine Respiratory Exam Present: CTA bilaterally - Routine Cardiovascular Exam Present: RRR - Routine Abdominal Exam Present: soft, normoactive bowel sounds - Routine Extremities Exam Comments: On examination of the lower extremities the limb lengths are equal. Thigh and calf are soft and nontender. On examination of the LEFT hip the dressings are clean, dry and intact. I have changed the dressings today and the wounds are healthy. No signs of infection or other complications noted. Distal pulses are 1+. Distal sensation is intact to light touch throughout. Actively moving her left ankle and foot. No motor deficits noted distally. - Routine Skin Exam Present: intact, normal turgor - Routine Neurological Exam Present: hearing grossly intact, normal speech - Routine Psychiatric Exam Present: cooperative - Urinary Catheter Management Gaspar Cath placed during this visit: no Progress Note: A&P (1) Intertrochanteric fracture of left hip Status: Acute Assessment and plan: I reviewed the clinical findings and progress with the patient and family. Patient is doing well from an orthopedic standpoint and reports no problems. Appears somewhat confused today and is reluctant to mobilize. Patient can be mobilized weightbearing as tolerated on the LEFT side with the walker. Continue DVT prophylaxis. From an orthopedic perspective, she can be discharged back to the intermediate for physical therapy. Continue DVT prophylaxis for total 5 weeks from surgery. Continue DVT prophylaxis for 5 weeks (Appropriate agents include [id number] aspirin, subcu Lovenox, warfarin, Xarelto, Eliquis and similar). She can be transferred to SNF when she meets the criteria. Follow-up in my office in 2 weeks' time. Medical management as per Dr. Loco. (2) DJD (degenerative joint disease) Status: Chronic (3) Lumbar canal stenosis Status: Chronic (4) Renal insufficiency Status: Chronic
[2017-12-21 07:22] VITALS: BP 165/90
--- NOTE | 2017-12-21 08:59 | Progress Note ---
Internal Medicine - PN: Subj *Date: 12/21/17 *Time: 08:55 Interval history: Patient indicates that her left hip does hurt. She denies chest pain and shortness of breath. She is not eating well. According to nursing note she has voided since Gaspar catheter removed. Exam Vital signs and Labs for Last 24 Hours: Temp Pulse Resp BP Pulse Ox 98.7 F 96 H 20 165/90 95 12/21/17 07:22 12/21/17 07:22 12/21/17 07:22 12/21/17 07:22 12/21/17 07:22 I & O for Last 24 hours: Intake & Output 12/18/17 12/19/17 12/20/17 12/21/17 11:59 11:59 11:59 11:59 Intake Total 2778 / 2778 1080 / 1080 510 / 510 Output Total 600 / 600 1725 / 1725 950 / 950 Balance -600 / -600 1053 / 1053 130 / 130 510 / 510 Weight 127 lb 3 oz 127 lb 3 oz 127 lb 2.99 oz - Constitutional no acute distress Comments: Sitting up in her bed. Appears comfortable - *Routine Respiratory Exam Comments: Bilateral fine basilar crackles - *Routine Cardiovascular Exam Present: RRR - *Routine Abdominal Exam Present: soft, normoactive bowel sounds. Absent: tenderness, distended - *Routine Extremities Exam Comments: Left thigh with clean dry dressings. No pedal edema. - *Routine Neurological Exam Pleasantly confused. Conversant but cannot complete sentences. Assessment and Plan (1) Intertrochanteric fracture of left hip Start date: 12/17/17 Current visit: Yes Status: Acute Category: Medical Code(s): S72.142A - Displaced intertrochanteric fracture of left femur, initial encounter for closed fracture (2) DJD (degenerative joint disease) Current visit: No Status: Acute Category: Medical Code(s): M19.90 - Unspecified osteoarthritis, unspecified site (3) Lumbar canal stenosis Current visit: No Status: Acute Category: Medical Code(s): M48.061 - Spinal stenosis, lumbar region without neurogenic claudication (4) Renal insufficiency Current visit: Yes Status: Acute Category: Medical Code(s): N28.9 - Disorder of kidney and ureter, unspecified (5) Dementia Current visit: Yes Status: Chronic Category: Medical Code(s): F03.90 - Unspecified dementia without behavioral disturbance (6) Hip fx Current visit: Yes Status: Acute Qualifiers: Encounter type: initial encounter Fracture type: closed Laterality: left Qualified Code(s): S72.002A - Fracture of unspecified part of neck of left femur, initial encounter for closed fracture Category: Medical Code(s): S72.009A - Fracture of unspecified part of neck of unspecified femur, initial encounter for closed fracture - Assessment and plan all Dx Assessment and Plan for all problems:: will go to [place] today
--- NOTE | 2017-12-21 09:13 | Discharge Summary ---
General - General Admission date: 12/17/17 Discharge date: 12/21/17 HPI HPI: Ms Aiken is a pleasant 82-year-old female seen on the floor for orthopedic consultation along with her son. She was having pain in the left hip for well over a week. There was no specific injury reported prior to her hospitalization at [place] last Wednesday. At that time she had full evaluation of the hip including an MRI and there was no evidence of a fracture. [place] was [place] [facility] [place]. She had been there only a matter of hours when she fell sustaining an injury to the left hip. She presented to the emergency room and was found to have an intertrochanteric fracture of the left hip. She was admitted for management of the same. She continued to have pain in the left hip. She has evidence of osteoporosis. She has had some progressive dementia as well. She was unable to get up and walk after the fall. Patient denied any dizziness, headache, chest or neck pain. She denied loss of consciousness, chest pain or shortness of breath. She previously had bilateral TKR-the left side was most recent, about [address] Ruby. I Hospital Course Hospital Course: With evaluation in the emergency room she was found to have a left hip fracture and was admitted to [facility] for with orthopedic consult. On 09/19/2017 she had a Cephalo-medullary nailing LEFT femur with Hunter Gamma 3 nailing system using the [employer]APT computer navigation 12/18/[address] Vasquez for Closed, comminuted , displaced and unstable intertrochanteric fracture LEFT femur. She was seen by physical therapy on 12/20/2017. She ate poorly. Gaspar catheter was removed and she has voided. It was evident that she would need additional rehab and a bed was obtained at [place]. She is to be discharged today for continued ongoing physical therapy. See discharge orders. To continue with physical therapy, same diet, and meds as per discharge sheet. Follow-up will be at [place] per Dr. Loco. At present patient is not eating well. Per Dr. Vasquez she can be weightbearing with a walker. She remains confused. She has had no chest pain and denies shortness of breath. Repeat CBC is pending at time of discharge. Patient is discharged in stable and satisfactory condition. Cognition is poor. Rehab potential is poor. Prognosis is fair. Objective Vital signs: Temp Pulse Resp BP Pulse Ox 98.7 F 96 H 20 165/90 95 12/21/17 07:22 12/21/17 07:22 12/21/17 07:22 12/21/17 07:22 12/21/17 07:22 Narrative: Constitutional no acute distress Comments: Sitting up in her bed. Appears comfortable - *Routine Respiratory Exam Comments: Bilateral fine basilar crackles - *Routine Cardiovascular Exam Present: RRR - *Routine Abdominal Exam Present: soft, normoactive bowel sounds. Absent: tenderness, distended - *Routine Extremities Exam Comments: Left thigh with clean dry dressings. No pedal edema. - *Routine Neurological Exam Pleasantly confused. Conversant but cannot complete sentences. Results Labs on day of discharge: Laboratory Tests 12/19/17 06:05 Sodium 137 Potassium 4.1 Chloride 103 Carbon Dioxide 27 Anion Gap 11.1 BUN 20 H Creatinine 1.06 H Estimated Creat Clear 36 Estimated GFR 49 L Est GFR ( Amer) 60 Glucose 108 H Calcium 8.4 L Total Bilirubin 0.4 AST 21 ALT 13 Alkaline Phosphatase 58 Total Protein 5.9 L Albumin 2.2 L Globulin 3.7 H Albumin/Globulin Ratio 0.6 L Laboratory Tests 12/19/17 06:05 WBC 7.8 RBC 3.18 L Hgb 9.5 L D Hct 28.6 L MCV 90.1 MCH 30.1 MCHC 33.4 RDW 13.4 Plt Count 209 Neut % (Auto) 78.8 Lymph % (Auto) 11.3 [place] % (Auto) 8.2 Eos % (Auto) 1.5 Baso % (Auto) 0.1 - Additional Comments 12/17/2017 hip x-ray FINDINGS: There is intratrochanteric fracture left hip with slight coxa vera angulation at the fracture site. Femoral head is within the acetabulum. The iliac bones and pubic bones and right hip appear intact. 12/17/2017 chest x-ray IMPRESSION: Intratrochanteric fracture left hip as notedIMPRESSION: Nonacute chest findings DS: Diagnosis - Discharge Diagnosis (1) Intertrochanteric fracture of left hip Status: Acute (2) DJD (degenerative joint disease) Status: Acute (3) Lumbar canal stenosis Status: Acute (4) Renal insufficiency Status: Acute (5) Dementia Status: Chronic (6) Hip fx Status: Acute Discharge Plan - Patient Discharge Instructions ACTIVITY: Limited activity DIET: continue same diet Additional Instructions: She will require physical therapy at [place]. - Follow up Plan Follow up with: Myriam Loco MD [Primary Care Provider] - Disposition: Xfer SNF Home Medications: Home Medications Medication Instructions Recorded Confirmed Type Cyclobenzaprine HCl 5 mg PO BID PRN 12/12/17 12/18/17 History [Cyclobenzaprine 5mg Tab] Donepezil HCl [Aricept 5mg] 5 mg PO HS 12/17/17 12/17/17 History Ibuprofen [Ibuprofen 600mg Tab] 600 mg PO TID 12/17/17 12/18/17 History Lisinopril [Lisinopril 20mg Tab] 20 mg PO BID 12/17/17 12/18/17 History Acetaminophen [Tylenol] 650 mg PO Q4HP PRN 12/18/17 12/18/17 History Tramadol HCl [Ultram] 50 mg PO Q6 PRN 12/18/17 12/18/17 History Prescriptions/Medication Reconciliation: New Hydrocod/Acet 5/325 mg [Korbel 5/325mg tablet] 1 tab PO QIDP PRN #20 tab PRN Reason: Moderate To Severe Pain Aspirin [Aspirin 81mg EC Tab] 81 mg PO HS #100 tablet.dr Continue Lisinopril [Lisinopril 20mg Tab] 20 mg PO BID Ibuprofen [Ibuprofen 600mg Tab] 600 mg PO TID Tramadol HCl [Ultram] 50 mg PO Q6 PRN PRN Reason: PAIN Cyclobenzaprine HCl [Cyclobenzaprine 5mg Tab] 5 mg PO BID PRN PRN Reason: Muscle Pain Donepezil HCl [Aricept 5mg] 5 mg PO HS Acetaminophen [Tylenol] 650 mg PO Q4HP PRN PRN Reason: PAIN, FEVER
[2017-12-21 09:16] LABS: Basophils % 0.3 % (0.1-2.0); Eosinophils # 0.1 K/mm3 (0.0-0.4); Hematocrit 28.2 % (37.0-47.0); Hemoglobin 9.3 g/dL (12.2-16.2); Lymphocytes # 0.6 K/mm3 (0.7-4.5); Lymphocytes % 8.6 K/mm3 (10-50); Mean Corpuscular Hemoglobin 29.9 pg (27.0-31.2); Mean Corpuscular Volume 90.6 fl (81-99); Mean Platelet Volume 7.1 fl (7.4-10.4); Monocytes # 0.5 K/mm3 (0.1-1.0); Monocytes % 6.7 % (1.7-9.3); Neutrophils # 6.1 K/mm3 (1.8-7.8); Neutrophils % 83.4 % (37.0-80.0); Platelet Count 220 K/mm3 (142-424); Red Blood Count 3.11 M/mm3 (4.20-5.40); Red Cell Distribution Width 13.3 % (11.5-17.5); White Blood Count 7.4 K/mm3 (4.8-10.8)
--- NOTE | 2017-12-21 12:47 | Progress Note ---
Subjective Date: 12/21/17 Time: 10:45 Principal diagnosis: Intertrochanteric fracture left femur Interval history: Patient is status post LEFT cephalo-medullary nailing post op day #3. Patient is lying on the bed and says she is doing well and reports no problems. Patient has minimal pain and says it's well-controlled with medication. No history of any nausea or vomiting. No history of any cough, chest pain, shortness of breath or palpitations. Nursing staff informs that patient is slow with mobility. PN: Obj Ex Vital signs: Temp Pulse Resp BP Pulse Ox 98.7 F 96 H 20 165/90 96 12/21/17 07:22 12/21/17 07:22 12/21/17 07:22 12/21/17 07:22 12/21/17 08:00 Narrative: Laboratory Results - last 24 hr 12/21/17 09:08: WBC 7.4, RBC 3.11 L, Hgb 9.3 L, Hct 28.2 L, MCV 90.6, MCH 29.9, MCHC 33.0, RDW 13.3, Plt Count 220, MPV 7.1 L, Neut % (Auto) 83.4 H, Lymph % ( Auto) 8.6 L, [place] % (Auto) 6.7, Eos % (Auto) 1.0, Baso % (Auto) 0.3, Neut # ( Auto) 6.1, Lymph # (Auto) 0.6 L, [place] # (Auto) 0.5, Eos # (Auto) 0.1, Baso # ( Auto) 0.0 - Constitutional no acute distress - Routine HEENT Exam Head: Present: normocephalic ENT: Present: mucous membranes moist (Patient patient checks) - Routine Neck Exam Present: supple, trachea midline - Routine Respiratory Exam Present: CTA bilaterally - Routine Cardiovascular Exam Present: RRR - Routine Abdominal Exam Present: soft, normoactive bowel sounds - Routine Extremities Exam Comments: On examination of the lower extremities the limb lengths are equal. Thigh and calf are soft and nontender. On examination of the LEFT hip the dressings are clean, dry and intact. Distal pulses are 1+. Distal sensation is intact to light touch throughout. No motor deficits noted distally. - Routine Skin Exam Present: intact, normal turgor - Urinary Catheter Management Gaspar Cath placed during this visit: no Progress Note: A&P (1) Intertrochanteric fracture of left hip Status: Acute Assessment and plan: I reviewed her vital signs, lab results, nursing notes, medical progress notes, medication and also discussed with the nursing staff regarding her progress. Overall she is doing well and progressing along the expected lines. Continue physical therapy and mobilization weightbearing as tolerated with the walker. Continue DVT prophylaxis for 6 weeks (Appropriate agents include high-dose- 325mg aspirin, subcu Lovenox, warfarin, Xarelto, Eliquis and similar). She is being transferred to SNF today. Follow-up in my office in 2 weeks' time. Medical management as per Dr. Loco's team. (2) DJD (degenerative joint disease) Status: Chronic (3) Lumbar canal stenosis Status: Chronic (4) Renal insufficiency Status: Chronic
== END 2017-12-21 12:06 ==
LOC: ER 19:30 → 2ND 22:01
PROVIDERS: ADMIT Family Medicine; ATTEND Family Medicine